=== PATIENT | male | born 1950 | race Caucasian/White ===

== ENCOUNTER 2017-07-27 14:45 | Emergency (ER) | payer OTHER ==
[~2017-07-27] VITALS: Ht 172.7 cm; Wt 105.0 kg
[2017-07-27 15:03] VITALS: BP 156/106; PULSE 101; RESP 18; TEMP 98.2; O2SAT 97
--- NOTE | 2017-07-27 15:06 | PD ---
HPI Chief Complaint: Respiratory Distress Time Seen by Provider: 14:48 Travel History International Travel<30 days: No Contact w/Intl Traveler<30days: No Traveled to known affect area: No History of Present Illness HPI 66-year-old male with history of sarcoidosis on 2 L of home oxygen, BPH, hyperlipidemia, presents via EMS for evaluation of a dyspneic episode. He reports that he is currently on vacation from [place], drove here 1 week ago. He reports that he went on a walk on the beach with no difficulty. He returned back to his hotel and he was urinating when he developed some shortness of breath. He reports that he sat down and continued to have some dyspnea. This lasted for several minutes and resolved by the time paramedics arrived. He denies any associated symptoms such as dizziness, lightheadedness, chest pain, nausea or vomiting, diaphoresis, denies any cough, congestion, fevers or chills , abdominal pain. Symptoms are moderate, no obvious aggravating or alleviating factors, currently resolved. He does report chronic wheezing secondary to sarcoidosis, uses DuoNeb treatment as needed, typically in the mornings. He denies any leg swelling. Denies any history of coronary artery disease, congestive heart failure. He has no other complaints at this time. [facility] Past Medical History Narrative Medical History of sarcoidosis, BPH, hyperlipidemia, 2 L oxygen ?: Not Social History Alcohol Use: No Tobacco Use: No Allergies-Medications (Allergen,Severity, Reaction): Coded Allergies: No Known Allergies (Unverified , 07/27/17) Reported Meds & Prescriptions Reported Meds & Active Scripts Active Reported Duoneb (Ipratropium-Albuterol Neb) 0.5-2.5 Mg/3 Ml Neb 1 Nebule INH Q4HR NEB Atorvastatin (Atorvastatin Calcium) 10 Mg Tab 10 Mg PO HS Avodart (Dutasteride) 0.5 Mg Cap 0.5 Mg PO DAILY Ventolin Hfa 18 GM Inh (Albuterol Sulfate) 90 Mcg/Act Aer 2 Puff INH Q4-6H PRN Advair Diskus Inh (Fluticasone-Salmeterol Inh) 250-50 Mcg/Blist Aer 1 Puff INH BID Rinse mouth after use. Review of Systems Except as stated in HPI: all other systems reviewed are Neg Physical Exam Narrative GENERAL: Well-developed well-nourished male in no acute distress answering questions appropriately vital signs reviewed SKIN: Warm and dry. HEAD: Atraumatic. Normocephalic. EYES: Pupils equal and round. No scleral icterus. No injection or drainage. ENT: No nasal bleeding or discharge. Mucous membranes pink and moist. NECK: Trachea midline. No JVD. CARDIOVASCULAR: Regular rate and rhythm. No murmur appreciated. RESPIRATORY: No accessory muscle use. Diffuse mild wheezing. No crackles. GASTROINTESTINAL: Abdomen soft, non-tender, nondistended. Hepatic and splenic margins not palpable. MUSCULOSKELETAL: No obvious deformities. No pitting edema. NEUROLOGICAL: Awake and alert. No obvious cranial nerve deficits. Motor grossly within normal limits. Normal speech. PSYCHIATRIC: Appropriate mood and affect; insight and judgment normal. Data Data Last Documented VS Vital Signs Date Time Temp Pulse Resp B/P (MAP) Pulse Ox O2 Delivery O2 Flow Rate FiO2 07/27/17 15:04 108 20 97 Nasal Cannula 2.00 07/27/17 15:03 98.2 156/106 (123) Orders Orders Complete Blood Count With Diff (07/27/17 14:59) Basic Metabolic Panel (Bmp) (07/27/17 14:59) Chest, Single Ap (07/27/17 ) Electrocardiogram (07/27/17 ) B-Type Natriuretic Peptide (07/27/17 14:59) Ckmb (Isoenzyme) Profile (07/27/17 14:59) Troponin I (07/27/17 14:59) Iv Access Insert/Monitor (07/27/17 14:59) D-Dimer (07/27/17 15:09) Ct Pulmonary Angiogram (07/27/17 16:49) Iohexol 350 Inj (Omnipaque 350 Inj) (07/27/17 17:30) Labs Laboratory Tests Test 07/27/17 15:05 07/27/17 16:05 White Blood Count 9.2 TH/MM3 Red Blood Count 4.87 MIL/MM3 Hemoglobin 14.4 GM/DL Hematocrit 42.0 % Mean Corpuscular Volume 86.2 FL Mean Corpuscular Hemoglobin 29.5 PG Mean Corpuscular Hemoglobin Concent 34.3 % Red Cell Distribution Width 15.1 % Platelet Count 200 TH/MM3 Mean Platelet Volume 8.7 FL Neutrophils (%) (Auto) 64.0 % Lymphocytes (%) (Auto) 24.2 % Monocytes (%) (Auto) 7.1 % Eosinophils (%) (Auto) 4.2 % Basophils (%) (Auto) 0.5 % Neutrophils # (Auto) 5.9 TH/MM3 Lymphocytes # (Auto) 2.2 TH/MM3 Monocytes # (Auto) 0.7 TH/MM3 Eosinophils # (Auto) 0.4 TH/MM3 Basophils # (Auto) 0.0 TH/MM3 CBC Comment DIFF FINAL Differential Comment Blood Urea Nitrogen 11 MG/DL Creatinine 0.87 MG/DL Random Glucose 125 MG/DL Calcium Level 8.7 MG/DL Sodium Level 139 MEQ/L Potassium Level 4.5 MEQ/L Chloride Level 104 MEQ/L Carbon Dioxide Level 28.4 MEQ/L Anion Gap 7 MEQ/L Estimat Glomerular Filtration Rate 88 ML/MIN Total Creatine Kinase 78 U/L Troponin I LESS THAN 0.02 NG/ML B-Type Natriuretic Peptide 16 PG/ML D-Dimer Quantitative (PE/DVT) 0.77 MG/L [facility] Medical Decision Making Medical Screen Exam Complete: Yes Emergency Medical Condition: Yes Medical Record Reviewed: Yes Differential Diagnosis Sarcoidosis exacerbation, reactive airway disease, spontaneous pneumothorax, acute coronary syndrome, pulmonary embolism Narrative Course 66-year-old male presents after having an episode of dyspnea at his hotel room today while urinating. This resolved after several minutes. He appears well. He does have diffuse mild wheezing which is his baseline secondary to sarcoidosis and he is currently denying any dyspnea. He is slightly tachycardic and recently traveled here from [place]. Therefore, a d-dimer has been added to his lab work. He was placed on ECG monitoring pulse oximetry. A twelve-lead EKG was obtained revealing sinus tachycardia with left bundle branch block. A chest x-ray will be obtained. He will be monitored closely. Laboratory is reviewed. D-dimer was elevated therefore CT pulmonary angiogram was obtained. CONCLUSION: 1. There is no evidence for PE for technique. 2. Soft tissue mass in left upper lung extending to left hilum has the appearance of scar in addition to scarring right perihilar area could be seen with sarcoidosis with calcified lymph nodes within the mediastinum as well. Neoplastic process is difficult to exclude and may consider F-18 FDG PET/CT to further characterize on a nonemergent basis. 3. Haziness right upper lung most likely inflammatory. The patient will be given a copy of his CT report for follow-up purposes, he follows with signals analyst at the [facility] he likely has outpatient studies on file that the findings can be compared to. He has been asymptomatic during his hospital stay. He is stable for discharge. Diagnosis Primary Impression: Dyspnea Additional Instructions: Please provide the patient a copy of all of his lab work upon discharge. Follow-up with your signals analyst as needed. Return for any acutely new or worsening symptoms. Med/Other Pt SpecificInfo: No Change to Meds Disposition: 01 DISCHARGE HOME Condition: Stable Raúl Reina Jul 27, 2017 15:06
[2017-07-27] MEDS ORDERED: AVOD0.5C PO (15:13)
[2017-07-27] MEDS ORDERED: ADVA250A INH (15:13)
[2017-07-27] MEDS ORDERED: VENTAER INH (15:13)
[2017-07-27] MEDS ORDERED: ATOR10TA15 PO (15:13)
[2017-07-27] MEDS ORDERED: IPRASOL INH (15:13)
[2017-07-27 15:20] LABS: AUTOMATED NEUTROPHIL # 5.9 TH/MM3 (1.8-7.7); BASOPHIL % 0.5 % (0.0-2.0); EOSINOPHIL # 0.4 TH/MM3 (0-0.4); EOSINOPHIL % 4.2 % (0.0-4.0); HEMOGLOBIN 14.4 GM/DL (13.0-17.0); LYMPH % 24.2 % (9.0-44.0); LYMPHOCYTE # 2.2 TH/MM3 (1.0-4.8); MEAN CELL VOLUME 86.2 FL (80.0-100.0); MEAN CORPUSCULAR HEMOGLOBIN 29.5 PG (27.0-34.0); MEAN CORPUSCULAR HGB CONC 34.3 % (32.0-36.0); MEAN PLATELET VOLUME 8.7 FL (7.0-11.0); MONO % 7.1 % (0.0-8.0); MONOCYTE # 0.7 TH/MM3 (0-0.9); PLATELET COUNT 200 TH/MM3 (150-450); RED BLOOD COUNT 4.87 MIL/MM3 (4.50-5.90); RED CELL DISTRIBUTION WIDTH 15.1 % (11.6-17.2); WHITE BLOOD COUNT 9.2 TH/MM3 (4.0-11.0)
[2017-07-27 15:55] LABS: BICARBONATE 28.4 MEQ/L (21.0-32.0); BLOOD UREA NITROGEN 11 MG/DL (7-18); CALCIUM 8.7 MG/DL (8.5-10.1); CHLORIDE 104 MEQ/L (98-107); CREATININE 0.87 MG/DL (0.60-1.30); GLOMERULAR FILTRATION RATE 88 ML/MIN (>89); GLUCOSE,RANDOM 125 MG/DL (74-106); SODIUM (NA) 139 MEQ/L (136-145); TROPONIN I LESS THAN 0.02 NG/ML (0.02-0.05)
--- NOTE | 2017-07-27 15:56 | RADRPT ---
EXAM DATE/TIME: 07/27/2017 15:30 [facility] COMPARISON: No previous studies available for comparison. INDICATIONS : Short of Breath MEDICAL HISTORY : Sarcoidosis SURGICAL HISTORY : None. ENCOUNTER: Initial ACUITY: 1 day PAIN SCORE: 0/10 LOCATION: chest FINDINGS: There is prominence of bilateral hilar shadows probably adenopathy in this patient with sarcoidosis a nd there are calcified mediastinal lymph nodes as well. Lungs are clear. CONCLUSION: Adenopathy within bilateral hilum and mediastinum partially calcified could be seen with sarcoidosis, however the appearance is nonspecific. Cris Danielson MD on July 27, 2017 at 15:53 Board Certified Radiologist. This report was verified electronically.
[2017-07-27] MEDS ORDERED: IOHEXOL 350 MG/ML 10 ML VIAL (for RAD DIAG) IVCONTRAST ONE (17:30)
--- NOTE | 2017-07-27 18:04 | RADRPT ---
EXAM DATE/TIME: 07/27/2017 17:25 [facility] COMPARISON: CHEST SINGLE AP, July 27, 2017, 15:30. INDICATIONS : Shortness of breath today. IV CONTRAST: 70 cc Omnipaque 350 (iohexol) IV RADIATION DOSE: 10.83 CTDIvol (mGy) MEDICAL HISTORY : sarcoidosis SURGICAL HISTORY : None. ENCOUNTER: Initial ACUITY: 1 day PAIN SCALE: 0/10 LOCATION: Bilateral chest TECHNIQUE: Volumetric scanning of the chest was performed using a pulmonary embolism protocol MIP images were re constructed. Using automated exposure control and adjustment of the mA and/or kV according to patien t size, radiation dose was kept as low as reasonably achievable to obtain optimal diagnostic quality images. DICOM format image data is available electronically for review and comparison. Follow-up recommendations for detected pulmonary nodules are based at a minimum on nodule size and pa tient risk factors according to Fleischner Society Guidelines. FINDINGS: There is no evidence for PE for technique. Multiple calcified mediastinal and hilar lymph nodes are seen with scattered areas of scarring in both lungs. Soft tissue process has the appearance of s car is present in perihilar locations bilaterally worse on the left side which measures 4.6 cm in siz e somewhat masslike, however probable large area of scar. Underlying neoplastic process is difficult to exclude at this time. There is mild haziness to right upper lung most likely inflammatory. CONCLUSION: 1. There is no evidence for PE for technique. 2. Soft tissue mass in left upper lung extending to left hilum has the appearance of scar in addition to scarring right perihilar area could be seen with sarcoidosis with calcified lymph nodes within th e mediastinum as well. Neoplastic process is difficult to exclude and may consider F-18 FDG PET/CT to further characterize on a nonemergent basis. 3. Haziness right upper lung most likely inflammatory. Cris Danielson MD on July 27, 2017 at 17:58 Board Certified Radiologist. This report was verified electronically.
[2017-07-27 18:08] VITALS: BP 128/74; PULSE 96; RESP 18; O2SAT 96
--- NOTE | 2017-07-27 18:24 | PD ---
Data Data Last Documented VS Vital Signs Date Time Temp Pulse Resp B/P (MAP) Pulse Ox O2 Delivery O2 Flow Rate FiO2 07/27/17 18:08 96 18 128/74 (92) 96 Nasal Cannula 2.00 07/27/17 15:03 98.2 Orders Orders Complete Blood Count With Diff (07/27/17 14:59) Basic Metabolic Panel (Bmp) (07/27/17 14:59) Chest, Single Ap (07/27/17 ) Electrocardiogram (07/27/17 ) B-Type Natriuretic Peptide (07/27/17 14:59) Ckmb (Isoenzyme) Profile (07/27/17 14:59) Troponin I (07/27/17 14:59) Iv Access Insert/Monitor (07/27/17 14:59) D-Dimer (07/27/17 15:09) Ct Pulmonary Angiogram (07/27/17 16:49) Iohexol 350 Inj (Omnipaque 350 Inj) (07/27/17 17:30) Ed Discharge Order (07/27/17 18:12) Labs Laboratory Tests Test 07/27/17 15:05 07/27/17 16:05 White Blood Count 9.2 TH/MM3 Red Blood Count 4.87 MIL/MM3 Hemoglobin 14.4 GM/DL Hematocrit 42.0 % Mean Corpuscular Volume 86.2 FL Mean Corpuscular Hemoglobin 29.5 PG Mean Corpuscular Hemoglobin Concent 34.3 % Red Cell Distribution Width 15.1 % Platelet Count 200 TH/MM3 Mean Platelet Volume 8.7 FL Neutrophils (%) (Auto) 64.0 % Lymphocytes (%) (Auto) 24.2 % Monocytes (%) (Auto) 7.1 % Eosinophils (%) (Auto) 4.2 % Basophils (%) (Auto) 0.5 % Neutrophils # (Auto) 5.9 TH/MM3 Lymphocytes # (Auto) 2.2 TH/MM3 Monocytes # (Auto) 0.7 TH/MM3 Eosinophils # (Auto) 0.4 TH/MM3 Basophils # (Auto) 0.0 TH/MM3 CBC Comment DIFF FINAL Differential Comment Blood Urea Nitrogen 11 MG/DL Creatinine 0.87 MG/DL Random Glucose 125 MG/DL Calcium Level 8.7 MG/DL Sodium Level 139 MEQ/L Potassium Level 4.5 MEQ/L Chloride Level 104 MEQ/L Carbon Dioxide Level 28.4 MEQ/L Anion Gap 7 MEQ/L Estimat Glomerular Filtration Rate 88 ML/MIN Total Creatine Kinase 78 U/L Troponin I LESS THAN 0.02 NG/ML B-Type Natriuretic Peptide 16 PG/ML D-Dimer Quantitative (PE/DVT) 0.77 MG/L [facility] Supervised Visit with MAURICE: Yes Narrative Course The history, exam, and medical decision-making in the associated mid-level provider note were completed with my assistance. I reviewed and agree with the findings presented. I attest that I had a [id number] encounter with the patient on the same day, and personally performed and documented my assessment and findings in the medical record. *My assessment and Findings: 66-year-old man presents to the emergency department complaining of shortness of breath. He has a history of sarcoidosis. He is on oxygen at home. Symptoms started while he was using the toilet, urinating. He said some questions intermittently the past. Recent long car ride from [place]. No definite evidence of DVT. Heart rates inexplicably a little bit elevated. Possibly related to bronchodilators. Looks otherwise well. Workup is negative for PE. Looks otherwise well. Recommend outpatient follow-up. Diagnosis Primary Impression: Dyspnea Patient Instructions: General Instructions Departure Forms: Tests/Procedures Additional Instruction: Please provide the patient a copy of all of his lab work upon discharge. Follow-up with your billing and insurance coordinator as needed. Return for any acutely new or worsening symptoms. Disposition: 01 DISCHARGE HOME Condition: Stable Martinez Alvarez MD Jul 27, 2017 18:24
--- NOTE | 2017-07-28 12:03 | EKG ---
Date Performed: 07/27/2017 Time Performed: 14:54:08 PTAGE: 66 years EKG: SINUS TACHYCARDIA WITH OCCASIONAL VENTRICULAR PREMATURE COMPLEXES LEFT BUNDLE BRANCH BLOCK ABNORMAL ECG NO PREVIOUS TRACING DOCTOR: Armin Pereira Interpretating Date/Time 07/28/2017 12:02:16
== END 2017-07-27 18:28 | disposition home or self-care (01) ==
LOC: NEPC 14:45
DX: R06.00 Dyspnea, unspecified (principal); D86.9 Sarcoidosis, unspecified; R94.31 Abnormal electrocardiogram [ECG] [EKG]; R79.1 Abnormal coagulation profile; N40.0 Benign prostatic hyperplasia without lower urinary tract symptoms; E78.5 Hyperlipidemia, unspecified; Z99.81 Dependence on supplemental oxygen
CPT/HCPCS: 71045; 71275; 80048; 82550; 83880; 84484; 85025; 85379; 93005; 99285; Q9967